=== PATIENT | female | born 1995 | race Caucasian/White ===

== ENCOUNTER 2017-05-20 10:28 | Emergency (ER) | payer OTHER ==
--- NOTE | 2017-05-20 10:32 | EDPHY ---
H & P - Personal History Tetanus Vaccine Date: 2014 - Medical/Surgical History Hx Asthma: No Hx Chronic Respiratory Disease: No Hx Diabetes: No Hx Cardiac Disease: No Hx Renal Disease: No Hx Cirrhosis: No Hx Alcoholism: No Hx HIV/AIDS: No Hx Splenectomy or Spleen Trauma: No Other PMH: OCD, ANXIETY, DEPRESSION, PANIC DISORDER, PER PT CONCUSSION LAST SPRING, MONO - Social History Smoking Status: Never smoked Time Seen by Provider: 05/20/17 10:30 HPI/ROS: CHIEF COMPLAINT: Left elbow injury possible dislocation HISTORY OF PRESENT ILLNESS: 22-year-old female arrives via ambulance after she was bouldering at an indoor climbing gym, fell onto her outstretched left elbow and felt immediate pain. Possible dislocation, splinted by EMS and transported. No paresthesia distally. No head injury. No neck pain or injury. No peripheral paresthesia, weakness, numbness. REVIEW OF SYSTEMS: A ten point review of systems was performed and is negative with the exception of the items mentioned in the HPI PAST MEDICAL/SURGICAL HISTORY: no anticoagulant use, no relevant medical/ surgical history SOCIAL HISTORY: denies alcohol use at time of incident PHYSICAL EXAM 1) GENERAL: Well-developed, well-nourished, alert and oriented. Appears uncomfortable. 2) HEAD: Normocephalic, atraumatic 3) HEENT: Pupils equal, round, reactive to light bilaterally.. 4) NECK: No cervical collar is on. Posterior cervical spine is nontender, no stepoff, no effusion. Full range of motion which does not elicit any midline cervical spine pain, no posterior midline tenderness, no step-off. 5) LUNGS: Clear to auscultation bilaterally, no wheezes, no rhonchi, no retractions. No obvious signs of trauma. No flaring, no grunting. Moving symmetrically. No crepitus. 6) HEART: [Regular rate and rhythm, 7) ABDOMEN: No guarding, no rebound, no focal tenderness, no peritoneal signs, no signs of trauma, no ecchymosis 8) MUSCULOSKELETAL: Left upper extremity: Posterior pre-hospital splint in place. Intact skin. Radial ulnar median nerve function intact distally. Brisk pulses. Moving all extremities, no focal areas of tenderness, no obvious trauma. 9) BACK: No midline vertebral tenderness, no fluctuance, no step-off, no obvious trauma, no visual or palpable abnormality. 10) SKIN: No laceration. No abrasion DIFFERENTIAL DIAGNOSIS: In no particular include but limited to fracture, dislocation, sprain, strain (Trisha,Jordi Ana Maria) Constitutional: Initial Vital Signs Temperature (C) 36.6 C 05/20/17 10:37 Heart Rate 100 05/20/17 10:37 Respiratory Rate 18 05/20/17 10:37 Blood Pressure 116/75 05/20/17 10:37 O2 Sat (%) 97 05/20/17 10:37 O2 Delivery Mode [Post Room Air procedure 5th] O2 Delivery Mode [Post Room Air Procedure 4th] O2 Delivery Mode [Post Room Air Procedure 3rd] O2 Delivery Mode [Post Room Air Procedure 2nd] O2 Delivery Mode [Post Non-Rebreather Mask Procedure 1st] O2 Delivery Mode [Procedural Non-Rebreather Mask 1st] O2 Delivery Mode [.Immediate Room Air Pre-Procedure] O2 Delivery Mode Room Air O2 (L/minute) [Post Procedure 15 1st] O2 (L/minute) [Procedural 1st] 15 Allergies/Adverse Reactions: aspartame Allergy (Verified 11/12/15 15:24) monosodium glutamate Allergy (Verified 11/12/15 15:24) Penicillins Allergy (Verified 11/12/15 15:24) Home Medications: Medication Instructions Recorded clonazePAM [Klonopin (*)] 0.5 mg PO TID PRN #30 tab 11/15/15 Ambien 05/20/17 Effexor 05/20/17 Hydrocodone/APAP 5/325 [[place] 1 tab PO Q6 PRN #7 tab 05/20/17 5/325 (RX)] Medical Decision Making - Diagnostics Imaging Results: Imaging Impressions Elbow X-Ray 05/20/17 10:31 Impression: 1. Posterior dislocation of left elbow. 2. Recommend post reduction images in order to exclude fracture. Elbow X-Ray 05/20/17 11:03 Impression: Single projection demonstrates anatomic realignment of the elbow following closed reduction. ED Course/Re-evaluation: I saw the patient in conjunction with Bradley briggs. I personally evaluated the patient. Patient was neurovascularly intact distally. Her elbow appear to be dislocated. I discussed treatment options with the patient. She would prefer conscious sedation. I discussed the risks and benefits of conscious sedation with the patient. She consented. Procedure: Procedural sedation. A pre-sedation evaluation was completed on the patient at 1045. Patient is an appropriate candidate for procedural sedation. The patient's vital signs and mental status are appropriate. The risks, benefits and alternatives of the sedation were discussed with the patient. The patient is ASA classification E. The patient's Mallampati airway score was 3 and the patient did meet the 3-3- 2 airway measurements. A time out was completed. The patient was sedated with ketamine 80 mg IV. The patient was monitored with continuous pulse oximetry, sales advisory manager and end tidal CO2. There were no complications and no significant hypoxemia. I performed the conscious sedation and procedure. I remained at the bedside for the sedation. The total time I spent in the procedural sedation was 15 . The patient was examined after the procedural sedation and has returned to their pre-sedation baseline with normal vital signs and a normal examination. (Alba Campbell) 10:32 a.m.: Patient was also seen and examined by secondary supervising physician Dr. Alba Campbell. (Jordi Rico) Differential Diagnosis: My differential includes but is not limited to fracture, dislocation, neurovascular injury, spinal injury (Alba Campbell) - Data Points Medications Given: Discontinued Medications Hydrocodone Bitart/Acetaminophen ([place] 5/325) 1 tab PO EDNOW ONE Stop: 05/20/17 12:45 Last Admin: 05/20/17 12:50 Dose: 1 tab Ketamine HCl (Ketamine) 80 mg IVP EDNOW ONE Stop: 05/20/17 10:54 Last Admin: 05/20/17 10:55 Dose: 80 mg Lorazepam (Ativan Injection) 0.5 mg IVP EDNOW ONE Stop: 05/20/17 10:54 Last Admin: 05/20/17 10:55 Dose: 0.5 mg Ondansetron HCl (Zofran) 4 mg IVP EDNOW ONE Stop: 05/20/17 10:54 Last Admin: 05/20/17 10:55 Dose: 4 mg Departure - Departure Disposition: Home, Routine, Self-Care Clinical Impression: Mountain climbing, rock climbing and wall climbing Dislocation of left elbow Qualifiers: Encounter type: initial encounter Qualified Code(s): S53.105A - Unspecified dislocation of left ulnohumeral joint, initial encounter Condition: Good Instructions: Elbow Dislocation (ED) Additional Instructions: Return to the ER immediately if you experience discoloration, have worsening pain, numbness, tingling, or any other symptoms that concern you. If you received x-rays in the emergency department today, be advised, that ligamentous , tendon, muscular, and other non-bony injury cannot be fully ruled out. Try to keep your affected extremity elevated above the level of your chest, and keep cold packs on the affected area, for the next 48 hours. Referrals: Rahul Lopes MD [Medical Doctor] - 1-2 days without fail Prescriptions: Hydrocodone/APAP 5/325 [[place] 5/325 (RX)] 1 tab PO Q6 PRN #7 tab PRN Reason: Pain, Severe
[2017-05-20 10:42] VITALS: TEMP 97.9
[2017-05-20] MEDS ORDERED: KETAMINE 200 MG/20 ML VIAL ONE (10:47)
[2017-05-20] MEDS ORDERED: LORazepam 2 MG/ML INJ ONE (10:47)
[2017-05-20] MEDS ORDERED: ONDANSETRON 4 MG/2 ML VIAL ONE (10:48)
[2017-05-20] MEDS ORDERED: ONDANSETRON 4 MG/2 ML VIAL IVP ONE (10:53)
[2017-05-20] MEDS ORDERED: KETAMINE 200 MG/20 ML VIAL IVP ONE (10:53)
[2017-05-20] MEDS ORDERED: LORazepam 2 MG/ML INJ IVP ONE (10:53)
[2017-05-20 11:18] VITALS: RESP 16
[2017-05-20] MEDS ORDERED: HYDROCODONE/APAP 5/325 TAB PO ONE (12:44)
[2017-05-20 13:01] VITALS: BP 103/60; PULSE 100; O2SAT 98
== END 2017-05-20 12:59 | disposition home or self-care (01) ==
LOC: EDUNIT#
PROC: 0RSMXZZ Reposition Left Elbow Joint, External Approach (ICD-10-PCS; principal; 2017-05-20)
DX: S53.105A Unspecified dislocation of left ulnohumeral joint, initial encounter (principal); W18.39XA Other fall on same level, initial encounter; Y92.39 Other specified sports and athletic area as the place of occurrence of the external cause; Y99.8 Other external cause status; Y93.39 Activity, other involving climbing, rappelling and jumping off
CPT/HCPCS: 96374; J2060; J2405

== ENCOUNTER 2017-08-11 20:21 | Inpatient (IN) | payer OTHER ==
--- NOTE | 2017-08-11 20:33 | EDPHY ---
HPI/HX/ROS/PE/MDM Narrative: CHIEF COMPLAINT: SI, M1 hold HISTORY OF PRESENT ILLNESS: This patient is a 22 year old female arriving via EMS from home on M1 hold for evaluation of suicidal ideation following a reported suicide attempt. She states "I tried to kill myself". Per EMS report, her boyfriend came home to find a note telling him to call 911. EMS and PD he had to break the door down and found the patient in the bathtub. She reportedly took about 60 0.5mg clonazepam and 8-10 5 mg Ambien around 17:15 this evening, hoping to fall asleep and drown. She states she has extra medication because "I've been hoarding them for this very event". She endorses history of depression, PTSD, and panic attacks and has attempted suicide multiple times in the past. Currently, she feels "woozy" and endorses a tingling sensation in her lips. The patient denies any numbness or paresthesias in her extremities. No nausea. She denies consuming any alcohol, Tylenol, ibuprofen, or other OTC medications. She denies any possibility of , LMP last week. No fever, chills, chest pain , shortness of breath, palpitations, vomiting, diarrhea, urinary complaints, headache, lightheadedness. REVIEW OF SYSTEMS: Aside from elements discussed in the HPI, a comprehensive 10-point review of systems was reviewed and is negative. PAST MEDICAL HISTORY: Depression, PTSD, panic attacks (Effexor, Ambien, Klonopin ) SOCIAL HISTORY: Occasional tobacco use. Social alcohol use. Occasional cocaine use. VITAL SIGNS: Reviewed by me GENERAL: Well-developed, well-nourished, resting comfortably in no respiratory distress. Slightly quiet. HEENT: Atraumatic. Eyes: Horizontal nystagmus with gaze in both directions. No icterus, no injection. Mouth: moist mucous membranes. No erythema or lesions. Neck: supple with no adenopathy. LUNGS: Clear to auscultation bilaterally, no wheezes, rhonchi or rales. CARDIAC: Regular rate and rhythm, no rubs, murmurs or gallops. ABDOMEN: Soft, nontender, nondistended, bowel sounds normal. BACK: No CVA tenderness. EXTREMITIES: Multiple superficial self-inflicted lacerations on left upper extremity. Nonsuturable. No edema. Range of motion is normal throughout. NEURO: Alert and oriented x3. Needs assistance in walking from the ambulance pram to the bed. SKIN: Warm and dry, no rash. PSYCHIATRIC: Normal mentation, no agitation. Portions of this note were transcribed by a medical practitioners. I personally performed a history, physical exam, medical decision making, and confirmed accuracy of information the transcribed note. (Minerva Lomeli) ED Course: [address] Feliz mcclain pending mental health evaluation. 07 patient signed out to Dr. Velez pending mental health evaluation. I have had no issues during my care this patient overnight. (Usama Soria) 7:00 a.m.-I assumed care of this patient at shift change. She presents after an intentional benzodiazepine overdose. She is on an M1 hold for suicidal ideation. Awaiting a mental health evaluation. 10:15 a.m.-accepted to [address] [place] [address] Roberson. (Alfreda Velez) 20:24 Met EMS at bedside. 22 y/o female presents on M1 hold following suicide attempt by prescription medication overdose. 12-LEAD EKG: Please see the full report in [employer] [facility]. My interpretation: Normal sinus rhythm, no rightward forces. 20:52 Consulted with poison control center. Ambien effects generally immediate. Recommended observation for clonazepam for 4-6 hours following patient's arrival in the emergency department. 22:00 patient's care was assumed by Dr. Rocael Soria. Will continue to observe. Urine tox is still pending. Tylenol and ibuprofen are negative. Patient will require evaluation by mental health once medically cleared. I would strongly recommend inpatient therapy. (Minerva Lomeli) MDM: Differential diagnosis of the patient's presenting complaint was considered including but not limited to functional and major depression, situational depression, medication side effect, drugs and alcohol abuse. (Minerva Lomeli) - Data Points Laboratory Results: Laboratory Results 08/11/17 20:40 08/11/17 20:40 08/11/17 21:06 Urine Opiates Screen NEGATIVE (NEGATIVE) Urine Barbiturates NEGATIVE (NEGATIVE) Ur Phencyclidine Scrn NEGATIVE (NEGATIVE) Ur Amphetamine Screen NEGATIVE (NEGATIVE) U Benzodiazepines Scrn NEGATIVE (NEGATIVE) Urine Cocaine Screen NEGATIVE (NEGATIVE) U Marijuana (THC) Screen NEGATIVE (NEGATIVE) Medications Given: Discontinued Medications Sodium Chloride (Ns) 1,000 mls @ 0 mls/hr IV ONCE ONE; Wide Open PRN Reason: Protocol Stop: 08/11/17 20:39 Last Admin: 08/11/17 21:25 Dose: 1,000 mls General Initial Vital Signs: Initial Vital Signs Temperature (C) 36.7 C 08/11/17 20:38 Heart Rate 83 08/11/17 20:38 Respiratory Rate 16 08/11/17 20:38 Blood Pressure 100/67 08/11/17 20:38 O2 Sat (%) 97 08/11/17 20:38 O2 Delivery Mode Room Air Allergies/Adverse Reactions: Penicillins Allergy (Intermediate, Verified 08/12/17 13:21) Vomiting aspartame Allergy (Verified 08/11/17 20:41) monosodium glutamate Allergy (Verified 08/11/17 20:41) stevia Allergy (Uncoded 08/11/17 20:41) Home Medications: Medication Instructions Recorded Venlafaxine Xr [Effexor Xr 75MG 225 mg PO HS 05/20/17 (*)] Zolpidem Tartrate [Ambien 5MG (*)] 5 mg PO HS 05/20/17 Acetaminophen/ASA/Caffeine 1 each PO DAILY PRN 08/12/17 [Excedrin Tablet (*)] Progesterone Based Bc 1 each PO DAILY 08/12/17 clonazePAM [Klonopin (*)] 0.5 mg PO DAILY PRN 08/12/17 Departure - Departure Disposition: [facility] IP Clinical Impression: Severe major depression, Attempted suicide Condition: Fair Report Scribed for: Minerva Lomeli Report Scribed by: Yaima Huber Date of Report: 08/11/17 Time of Report: 20:33
[2017-08-11] MEDS ORDERED: NS 1,000 ML IV ONE (20:38)
[2017-08-11 20:46] LABS: PLATELET COUNT 259 10^3/uL (150-400)
--- NOTE | 2017-08-11 20:52 | CPEKG ---
Heart Rate: 76 RR Interval: 789 P-R Interval: 144 QRSD Interval: 82 QT Interval: 408 QTC Interval: 459 P [place]: 58 QRS [place]: 80 T Wave [place]: 58 EKG Severity - NORMAL ECG - EKG Impression: SINUS RHYTHM Electronically Signed By: Minerva Lomeli 11-Aug-2017 22:32:05
[2017-08-12] MEDS ORDERED: OLANZapine DISINTEGR 10 MG TAB PO PRN (12:42)
[2017-08-12] MEDS ORDERED: ACETAMINOPHEN 325 MG TAB PO PRN (12:42)
[2017-08-12] MEDS ORDERED: MAGNESIUM HYDROXIDE 30 ML UDCUP PO PRN (12:42)
[2017-08-12] MEDS ORDERED: MAG HYDROX/AL HYDROX/SIMETH 30 ML UDCUP PO PRN (12:42)
[2017-08-12] MEDS ORDERED: NICOTINE POLACRILEX 2 MG GUM B PRN (12:42)
[2017-08-12] MEDS ORDERED: ACETAMINOPHEN/ASA/CAFFEINE 1 EACH TAB PO PRN (14:12)
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
--- NOTE | 2017-08-12 17:21 | BCON ---
[f rep st] BEHAVIORAL HEALTH CONSULTATION INTERNAL MEDICINE CONSULTATION DATE OF CONSULTATION: 08/12/2017 REFERRING PHYSICIAN: CRISTO STOKES MD REASON FOR REFERRAL: Medical clearance for inpatient behavioral health stay. HISTORY OF PRESENT ILLNESS: This patient came to the emergency department yesterday after an intentional overdose with clonazepam. She had left a note on her door for her boyfriend letting him know that she was committing suicide and asking him to call [id number]. The police had to forcibly enter the home and found her naked with reduced level of consciousness in the bath tub. She was brought to the emergency department where she was observed until she had improved level of consciousness. She was considered medically stable and transferred to inpatient rehabilitation for further psychiatric care. She currently reports feeling tired. She otherwise is without any acute complaints. PAST MEDICAL HISTORY: 1. Mental health issues with diagnoses of depression, PTSD, and borderline personality disorder. 2. Migraine headaches. 3. Elbow dislocation. PAST SURGICAL HISTORY: She has not had any surgeries. MEDICATIONS: Prior to admission: 1. Venlafaxine 225 mg p.o. daily. 2. Clonazepam 0.5 mg p.r.n. 3. Zolpidem 5 mg q.h.s. p.r.n. 4. control pill. SOCIAL HISTORY: She lives with her boyfriend. 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 She has had 2-1/2 years of education at the [employer] in [place] where she was studying Welsh language and computer science. She is a nonsmoker and uses occasional alcohol. FAMILY HISTORY: She is not aware of any chronic medical conditions in her parents. REVIEW OF SYSTEMS: She reports feeling tired. She reports that her balance is off. She is not in pain. She denies dyspnea or cough. She denies nausea, vomiting, constipation, or diarrhea. She has a good appetite. She has not had recent weight change. She has no fevers or chills. Otherwise, a 10-point review of systems is negative. PHYSICAL EXAM: VITAL SIGNS: Blood pressure is 106/66, heart rate is 90, respiratory rate is 16, oxygen saturation is 98% on room air. Temperature is 36.6 degrees centigrade. Her weight is 69.9 kg for a body mass index of 24.9. GENERAL: This is a well-nourished, well-developed woman napping in bed, easily awakened to verbal stimulation, cooperative and in no acute distress. HEENT: Extraocular movements are intact. Pupils are equal, round, and reactive to light. Mucous membranes are moist. Dentition is in good condition. She has an uncrowded airway, Mallampati class 2. NECK: Supple. HEART: There is a regular rate and rhythm with no murmurs, rubs, or gallops. LUNGS: Clear to auscultation bilaterally. ABDOMEN: Benign. EXTREMITIES: There is no cyanosis , clubbing, or edema. NEUROLOGIC: She is alert and oriented x3. Cranial nerves 2-12 are grossly intact. There is no focal weakness. Sensation is intact to light touch. She has loss of balance with spontaneous correction when she arises to standing from seated. LABORATORY STUDIES: Drawn in the emergency department, CBC was entirely within normal limits. Serum chemistry revealed normal renal function and electrolytes. TSH was normal at 3.17. Beta hCG was negative for . Toxicology screen in the serum was negative for salicylates, acetaminophen or ethyl alcohol, and in the urine was negative for any substances of abuse. ASSESSMENT/RECOMMENDATIONS: 1. Intentional overdose with benzodiazepines. She continues to have sleepiness and has ataxia with impaired balance. She was cautioned to be careful when she arises from lying down. It is expected that these symptoms will resolve soon as she metabolizes the benzodiazepines. From reading her history, it seems unlikely that she has been a chronic user of benzodiazepines, so the chance of withdrawal syndrome is low. 2. History of migraine headaches. Excedrin Migraine is the medication that she used on an outpatient basis, and this has been appropriately prescribed. 3. Superficial laceration on her left forearm. There are no signs or symptoms of infection, and it is expected that this will heal spontaneously. I see no medical contraindications to this patient's continued stay on the inpatient behavioral health unit or to any psychiatric medications or procedures. Thank you very much for including me in the care of this patient and please do not hesitate to contact me or the Hospitalist service should there be need for further medical evaluation. /[id number]/MODL MTDD
[2017-08-12] MEDS: VENLAFAXINE XR 75 MG CAP PO SCH (20:10)
[2017-08-12] MEDS: ARIPiprazole 2 MG TAB PO SCH (20:10)
[2017-08-12] MEDS ORDERED: VENLAFAXINE XR 75 MG CAP PO SCH (21:00)
[2017-08-13] MEDS ORDERED: [UNRECOGNIZED DRUG - REMARK] PO SCH (09:00)
[2017-08-13] MEDS: NORETHINDRONE PO SCH (11:11)
--- NOTE | 2017-08-13 11:35 | SOAPPROG ---
SOAP Progress Note Assessment/Plan: Assessment: Major Depressive Disorder Recurrent severe with mixed features Borderline PD Sedative Intoxication - improving Suicidal attempt by superficially cutting LUE and OD on clonazepam and zolpidem History of PTSD, HECTOR, OCD, Insomnia History of Migraine Headaches and elbow dislocation Patient admitted on M-1 after suicide attempt. Patient has mixed depressive symptoms and anxiety and Borderline PD symptoms. Patient appears mildly sedated and slowed by sedative overdose, but less ataxia and speech more clear. Patient has continued SI but denies intent and agrees to talk to staff if having worsening symptoms and has some insight. Patient observed to be calm this AM, ate full meal, appropriate in groups this AM. Plan: File Short Term Certification - danger to self Continue Effexor XR 150mg QHS, reduced after admit Continue Abilify 2mg QHS, started 08/12, consider increasing when less sedated from recent sedative OD Monitor mood stability, risk of self-harm, insight Discontinue line of sight precautions. Continue SPI/Safety 15minute checks 08/13/17 11:38 Subjective: CC: "Tired" Patient reports this AM feeling 'more clear headed but a little weak and unsteady.' Reports sleeping well overnight. Reports continued racing thoughts but less severe than previous. Reports SI to OD or cut herself, denies intent, reports wanting to live for parents, brother, BF, and other friends. Reports suicidal thoughts 'are in the back of my mind now, not the front.' Denies feeling stiff or having tremors. Reports she doesn't want to be in the hospital but knows that she is not well and needs treatment. Objective: Vital Signs Temp Pulse Resp BP Pulse Ox 36.6 C 102 H 14 93/59 L 96 08/13/17 06:36 08/13/17 06:36 08/13/17 06:36 08/13/17 06:36 08/13/17 06:36 TSH 3.1 Staff report last PM was ataxic with slurred speech, labile affect, reporting SI with multiple plans. This AM calm and ate breakfast, appropriate in groups. Tired WM, mild slowing/sedation, mild ataxia. Speech soft and less slurred. Mood 'tired' Affect restricted, briefly tearful. Thoughts organized but limited information. Reports SI but denies intent 'it is in the back of my mind , not the front.' Denies HI or AH. No evident delusions. Limited insight. - Time Spent With Patient Time Spent With Patient: 30 minutes - Pending Discharge Pending Discharge Within 24 Hours: No Pending Discharge Within 48 Hours: No ICD10 Worksheet Patient Problems: Problems Problem Status Onset Anxiety Acute Attempted suicide Acute Benzodiazepine overdose Acute Borderline personality disorder Acute Major depressive disorder, recurrent episode with mixed features Acute Severe major depression Acute Suicidal ideation Acute
[2017-08-13] MEDS: QUEtiapine FUMARATE 50 MG TAB PO PRN ×2 (12:04→21:27)
[2017-08-13] MEDS: VENLAFAXINE XR 75 MG CAP PO SCH (20:23)
[2017-08-13] MEDS: ARIPiprazole 2 MG TAB PO SCH (20:23)
[2017-08-14] MEDS: NORETHINDRONE PO SCH (09:00)
--- NOTE | 2017-08-14 16:41 | SOAPPROG ---
SOAP Progress Note Assessment/Plan: Assessment: Per Dr. Cherry's note: Assessment: Major Depressive Disorder Recurrent severe with mixed features Borderline PD Sedative Intoxication - improving Suicidal attempt by superficially cutting LUE and OD on clonazepam and zolpidem History of PTSD, HECTOR, OCD, Insomnia History of Migraine Headaches and elbow dislocation Patient admitted on M-1 after suicide attempt. Patient has mixed depressive symptoms and anxiety and Borderline PD symptoms. Patient appears mildly sedated and slowed by sedative overdose, but less ataxia and speech more clear. Patient has continued SI but denies intent and agrees to talk to staff if having worsening symptoms and has some insight. Patient observed to be calm this AM, ate full meal, appropriate in groups this AM. Plan: File Short Term Certification - danger to self Continue Effexor XR 150mg QHS, reduced after admit Continue Abilify 2mg QHS, started 08/12, consider increasing when less sedated from recent sedative OD Monitor mood stability, risk of self-harm, insight Discontinue line of sight precautions. Continue SPI/Safety 15minute checks Plan: 08/14/17 16:36 1. Patient c/o feeling "dizzy" and "unsteady" but MD could not observe any unusual gait or evidence of these sxs. 2. Patient still having SI, but no plan or intent to act of these thoughts. She is able to contract for safety. 3. Place on ISB-II d/t patient's inappropriate sexual comments toward staff. 4. Slept 8 hrs last night, eating well and presents well-groomed with appropriate hygiene. Subjective: Met with patient, reviewed chart and d/w staff. Patient presents pleasant, social, interacting with peers and visitors. When MD observes her, she is smiling, chatting with peers and appears in no distress. She told CC this AM that the reason she took OD was b/c her boyfriend was not "paying me enough attention." She also reports that she has been upset recently b/c her boyfriend was "getting all the attention," b/c her boyfriend had recently stopped using drugs and got a new job. Patient endorses thoughts of suicide, but denies any intent to act on them. Objective: Vital Signs Temp Pulse Resp BP Pulse Ox 36.3 C 89 16 101/63 97 08/14/17 08:00 08/14/17 07:05 08/14/17 07:05 08/14/17 07:05 08/14/17 07:05 MSE: Affect: Euthymic Mood: "OK" TP: Linear TC: Denies any intent or plan to act on SI, no evidence of psychosis Insight/Judgment: Poor - Time Spent With Patient Time Spent With Patient: 15" - Pending Discharge Pending Discharge Within 24 Hours: No Pending Discharge Within 48 Hours: No ICD10 Worksheet Patient Problems: Problems Problem Status Onset Anxiety Acute Attempted suicide Acute Benzodiazepine overdose Acute Borderline personality disorder Acute Major depressive disorder, recurrent episode with mixed features Acute Severe major depression Acute Suicidal ideation Acute
[2017-08-14] MEDS: QUEtiapine FUMARATE 50 MG TAB PO PRN (17:10)
[2017-08-14] MEDS: VENLAFAXINE XR 75 MG CAP PO SCH (21:01)
[2017-08-14] MEDS: ARIPiprazole 2 MG TAB PO SCH (21:01)
[2017-08-15] MEDS: NORETHINDRONE PO SCH (08:23)
[2017-08-15] MEDS: QUEtiapine FUMARATE 50 MG TAB PO PRN ×3 (10:31→21:37)
[2017-08-15] MEDS ORDERED: ARIPiprazole 2 MG TAB PO SCH (17:30)
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
[2017-08-15] MEDS ORDERED: ARIPiprazole 5 MG TAB PO SCH (21:00)
[2017-08-15] MEDS: VENLAFAXINE XR 75 MG CAP PO SCH (21:37)
[2017-08-16] MEDS ORDERED: ARIPiprazole 5 MG TAB PO SCH (08:29)
[2017-08-16] MEDS ORDERED: VENLAFAXINE XR 75 MG CAP PO SCH (08:29)
[2017-08-16] MEDS: NORETHINDRONE PO SCH (08:40)
--- NOTE | 2017-08-16 08:40 | SOAPPROG ---
SOAP Progress Note Assessment/Plan: Assessment: Major Depressive Disorder Recurrent severe with mixed features versus Bipolar DO depressed/mixed Borderline PD Suicidal attempt by superficially cutting LUE and OD on clonazepam and zolpidem PTSD History of Migraine Headaches and elbow dislocation Patient admitted on M-1 after suicide attempt. Patient has mixed depressive symptoms and anxiety and Borderline PD symptoms. Patient had severe dysphoria, mood lability, SI, and agitation with inappropriate sexual comments over weekend. Plan: Short Term Certification Reduce Effexor 75mg QHS Increase Abilify 10mg QHS Hydroxyzine 25mg PRN anxiety/insomnia Monitor mood stability, risk of self-harm, insight Discontinue line of sight precautions. Continue SPI/Safety, SB2 08/16/17 08:41 Subjective: CC: 'OK so far, up and down over the weekend it was rough.' Patient reports over weekend having severe mood swings, racing thoughts, agitation, self-harming behaviors (scratching on arms and face and neck) and yelling at people. Reports continued SI over weekend 'really intense' but now denies intent/plan to harm self. Reports wanting to live for pets (cats, lizard , rats) and BF. Reports tolerating Abilify without restlessness or slowing. Reports brief intense anxiety, hypervigilance, startle, and intrusive thoughts of past trauma. Reports brief yelling at staff and patients over weekend. Objective: Vital Signs Temp Pulse Resp BP Pulse Ox 36.6 C 108 H 14 105/68 96 08/16/17 06:54 08/16/17 06:54 08/16/17 06:54 08/16/17 06:54 08/16/17 06:54 Alert WF. Labile affect - briefly dysphoric, then later smiling with humor. Speech RRR, loud at times. Mood 'OK so far, up and down over the weekend it was rough.' Thoughts organized. Reports daily SI but denies intent/plan. Denies violent or homicidal thoughts. Denies AH or VH. No evident delusions. Limited insight. Staff report over weekend patient was labile, reporting SI regularly, briefly yelling and making inappropriate sexual comments toward staff, briefly agitated , but eating meals and attending most groups. Slept 7.5 hours, got PRN Seroquel 25mg, eating breakfast this AM. - Time Spent With Patient Time Spent With Patient: 30 min - Pending Discharge Pending Discharge Within 24 Hours: No Pending Discharge Within 48 Hours: No ICD10 Worksheet Patient Problems: Problems Problem Status Onset Anxiety Acute Attempted suicide Acute Benzodiazepine overdose Acute Borderline personality disorder Acute Major depressive disorder, recurrent episode with mixed features Acute Severe major depression Acute Suicidal ideation Acute
[2017-08-16] MEDS: hydrOXYzine HCL 25 MG TAB PO PRN ×3 (09:22→21:28)
[2017-08-16] MEDS: QUEtiapine FUMARATE 50 MG TAB PO PRN (19:40)
[2017-08-17] MEDS: NORETHINDRONE PO SCH (08:22)
[2017-08-17] MEDS: hydrOXYzine HCL 25 MG TAB PO PRN ×2 (08:25→14:51)
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
[2017-08-17] MEDS: VENLAFAXINE XR 75 MG CAP PO SCH (19:07)
[2017-08-17] MEDS: QUEtiapine FUMARATE 100 MG TAB PO SCH (19:08)
[2017-08-18] MEDS: NORETHINDRONE PO SCH (08:03)
[2017-08-18] MEDS: hydrOXYzine HCL 25 MG TAB PO PRN ×2 (11:10→17:16)
--- NOTE | 2017-08-18 13:59 | SOAPPROG ---
SOAP Progress Note Assessment/Plan: Assessment: Bipolar Disorder I depressed with mixed features Borderline PD Suicidal attempt by superficially cutting LUE and OD on clonazepam and zolpidem PTSD History of Migraine Headaches and elbow dislocation Housing stressors Patient admitted on M-1 after suicide attempt. Patient has mixed manic/ depressive symptoms and anxiety/PTSD symptoms and Borderline PD symptoms. Patient is much more calm on unit today with some mood lability and SI, but much less dyphoric/agitated than yesterday. Reports intermittent suicidal thoughts of less intensity and less frequency than yesterday. Tolerated Seroquel 100mg QHS after Abilify discontinued. Plan: Short Term Certification Continue Effexor 75mg QHS, reduced 08/16 Increase Seroquel 150mg PO QHS for mood stabilization Continue Hydroxyzine 25mg PRN anxiety/insomnia Monitor mood stability, risk of self-harm, insight Safety/SP1 precautions Had family meeting on phone with patient and father. Father will cigar packer and picker patient on Wednesday08/20/17 if patient has continued improvement in mood stability and take patient to [facility] appointment that afternoon. Patient agreeable to stay with parents for weekend and duration of IOP. 08/18/17 14:02 Subjective: CC: "Much better I think" Patient reports sleeping well with Seroquel last night. Reports reduced racing thoughts and feeling more calm. Reports yesterday crying excessively due to inability to reach boyfriend and worrying about the future. After M.D. visit yesterday, was able to reach BF and talk to parents. Reports willingness to return home with family and start IOP at [facility]. Reports prior to hospitalization was having racing thoughts and severe insomnia of only a few hours at a time, along with excessive time on phone and internet, and episodes of severe agitation and feeling overwhelmed. Reports currently feeling that she identify her stressors and wants to work on coping skills. Spent 15 minutes on speaker phone with patient and father reviewing assessment and plan. Objective: Vital Signs Temp Pulse Resp BP Pulse Ox 36.7 C 97 16 109/56 L 96 08/18/17 07:00 08/18/17 07:00 08/18/17 07:00 08/18/17 07:00 08/18/17 07:00 Alert WF. Ambulatory. Mostly calm but restless at times. Speech RRR, loud at times. Thoughts briefly organized, tangential at times. Reports intermittent SI but less intense and less frequent than yesterday. Denies HI or AH or paranoia. Reports reduced racing thoughts. Mood 'better I think' affect labile at times, mostly restricted, later brief smiling with humor, later briefly tearful. Insight/judgment much improved. Staff report patient slept overnight and is eating and attending groups. Yesterday was crying excessively at times but able to calm down. In groups mostly organized and appropriate. - Time Spent With Patient Time Spent With Patient: 40 minutes - Pending Discharge Pending Discharge Within 24 Hours: No Pending Discharge Within 48 Hours: Yes Pending Discharge Date: 08/20/17 Pending Discharge Time: 11:00 ICD10 Worksheet Patient Problems: Problems Problem Status Onset Anxiety Acute Attempted suicide Acute Benzodiazepine overdose Acute Bipolar affective, mixed, severe Acute Borderline personality disorder Acute Major depressive disorder, recurrent episode with mixed features Acute Posttraumatic stress disorder Acute Suicidal ideation Acute
[2017-08-18] MEDS: VENLAFAXINE XR 75 MG CAP PO SCH (20:23)
[2017-08-18] MEDS: QUEtiapine FUMARATE 100 MG TAB PO SCH (20:24)
[2017-08-18] MEDS: QUEtiapine FUMARATE 50 MG TAB PO PRN (20:24)
--- NOTE | 2017-08-19 08:24 | SOAPPROG ---
SOAP Progress Note Assessment/Plan: Assessment: Bipolar Disorder I depressed with mixed features Borderline PD Suicidal attempt by superficially cutting LUE and OD on clonazepam and zolpidem PTSD History of Migraine Headaches and elbow dislocation Housing stressors Patient admitted on M-1 after suicide attempt. Patient has mixed manic/ depressive symptoms and anxiety/PTSD symptoms and Borderline PD symptoms. Patient appears calm with reduced intensity of suicidal thoughts. Patient reports rapid heart rate and constipation, probable side effects from PRN Hydroxyzine Patient reports excessive sedation/slowing with 150mg Seroquel. Plan: Short Term Certification Continue Effexor 75mg QHS, reduced 08/16. Discussed risk of defects, bleeding, shane, SI, agitation. Reduce Seroquel 100mg PO QHS for mood stabilization. Discussed risk of tardive dyskinesia, metabolic syndrome, sedation, unclear safety in . Reduce Hydroxyzine 12.5mg PRN anxiety/insomnia. Discussed risk of sedation, defects, constipation, urinary retention, tachycardia. Start Senokot daily for constipation Reviewed goals, strengths, reasons to live, coping skills, supports, safety plan Monitor mood stability, risk of self-harm, insight Safety precautions, discontinue SP1 Discharge in AM with family if continued improvement Patient has [facility] intake tomorrow afternoon 08/19/17 08:20 Subjective: CC: "Good this morning, tired, maybe the Seroquel is too strong" Patient reports feeling excessively tired and slowed this AM. Reports overall yesterday having improved mood stability and reduced intensity of suicidal thinking 'it is in the back of my mind, I don't think about it as much, I don't want to do it.' Reports goal of completing IOP while living with parents and then moving back with boyfriend. Reports boyfriend had a relapse on heroin after her OD but has not been sober for 4 days and is working. Reports goal of getting back to work and spending time with family and pets after discharge. Reports plan to exercise, paint, and play with pets if feeling 'stressed out and overwhelmed.' Reports concern of sexual side effects from antidepressants. Denies racing thoughts or irritability or agitation this AM. Had rapid HR after 2nd PRN hydroxyzine yesterday. Had hard stool/constipation yesterday. Reports wanting D/C tomorrow with family if feeling stable today. Reports having good conversation with parents yesterday on phone and BF visited last night. Objective: Vital Signs Temp Pulse Resp BP Pulse Ox 36.7 C 103 H 14 98/63 L 96 08/19/17 07:03 08/19/17 07:03 08/19/17 07:03 08/19/17 07:03 08/19/17 07:03 Alert WF, pleasant. No tremors or AIM. Appears somewhat tired. Mood 'better' affect reactive with brief smiling. Thoughts organized and future oriented. Reports chronic SI but reduced intensity than previous, denies intent/plan to harm self. Denies violent thoughts or HI or AH. No evident delusions. Fair insight and appropriate judgment. Staff report 9 hours. Reported SI yesterday without plan/intent. Episodic anxiety yesterday got PRN Hydroxyzine 25mg twice. Calm and appropriate in groups. - Time Spent With Patient Time Spent With Patient: 20 minutes - Pending Discharge Pending Discharge Within 24 Hours: Yes Pending Discharge Date: 08/20/17 Pending Discharge Time: 11:00 ICD10 Worksheet Patient Problems: Problems Problem Status Onset Anxiety Acute Attempted suicide Acute Benzodiazepine overdose Acute Bipolar affective, mixed, severe Acute Borderline personality disorder Acute Major depressive disorder, recurrent episode with mixed features Acute Posttraumatic stress disorder Acute Suicidal ideation Acute
[2017-08-19] MEDS ORDERED: QUEtiapine FUMARATE 50 MG TAB PO PRN (08:31)
[2017-08-19] MEDS: SENNOSIDES 1 TAB PO SCH (08:32)
[2017-08-19] MEDS: NORETHINDRONE PO SCH (08:32)
[2017-08-19] MEDS: hydrOXYzine HCL 25 MG TAB PO PRN ×2 (10:38→21:49)
[2017-08-19] MEDS: QUEtiapine FUMARATE 100 MG TAB PO SCH (20:27)
[2017-08-19] MEDS: VENLAFAXINE XR 75 MG CAP PO SCH (20:27)
[2017-08-20 06:39] VITALS: BP 101/60
[2017-08-20] MEDS: NORETHINDRONE PO SCH (07:58)
[2017-08-20] MEDS: hydrOXYzine HCL 25 MG TAB PO PRN (07:58)
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
[2017-08-20] MEDS: SENNOSIDES 1 TAB PO SCH (10:34)
== END 2017-08-20 11:35 | disposition home or self-care (01) | DRG 918 ==
LOC: EDUNIT# → BBEH 08-12 12:35
DX: T42.4X2A Poisoning by benzodiazepines, intentional self-harm, initial encounter (principal); F31.60 Bipolar disorder, current episode mixed, unspecified; F43.10 Post-traumatic stress disorder, unspecified; F60.3 Borderline personality disorder
CPT/HCPCS: 80305; G0480